=== PATIENT | male | born 1940 | race African-American/Black ===

== ENCOUNTER 2018-07-26 17:33 | Inpatient (IN) | payer MEDICARE, OTHER ==
[~2018-07-26] VITALS: Ht 167.6 cm; Wt 57.6 kg
[2018-07-26 18:07] LABS: CARBON DIOXIDE 29 mmol/L (21-32); CHLORIDE 102 mmol/L (98-107); CREATININE 0.9 mg/dL (0.6-1.3); GLUCOSE 121 mg/dL (74-106); POTASSIUM 4.2 mmol/L (3.5-5.1); UREA NITROGEN, BLOOD 14 mg/dL (7-18)
[2018-07-26 18:13] LABS: ALANINE AMINOTRANSFERASE 19 U/L (16-63); ALKALINE PHOSPHATASE 79 U/L (50-136); ASPARTATE AMINOTRANSFERASE 21 U/L (15-37); BILIRUBIN,DIRECT 0.1 mg/dL (0.0-0.2); BILIRUBIN,TOTAL 0.3 mg/dL (0.2-1.0); TOTAL PROTEIN, SERUM 7.7 g/dL (6.4-8.2)
[2018-07-26] MEDS ORDERED: HYDR-3326 PO (18:18)
[2018-07-26] MEDS ORDERED: DIVA500T2 PO (18:18)
[2018-07-26] MEDS ORDERED: CIME300T PO (18:18)
--- NOTE | 2018-07-26 18:59 | NUR ---
Assumed care of patient. No acute distress noted. [facility]HU admission for DTO.
--- NOTE | 2018-07-26 19:37 | NUR ---
Report given to Alina STEVENSON in MHU. Pt. admitted to MHU , under care of Dr. Loomis/ Areli Reardon SUPERVISOR [employer]. Dx: Psychosis. Belongs List completed
--- NOTE | 2018-07-26 19:41 | NUR ---
MRSA was complete by Dayshift RN
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
[2018-07-26] MEDS ORDERED: MAGNESIUM HYDROXIDE 30 ML LIQUID UDC PO PRN (21:00)
[2018-07-26] MEDS ORDERED: LORAZEPAM 0.5 MG TABLET PO PRN (21:00)
[2018-07-26] MEDS ORDERED: ACETAMINOPHEN 325 MG TABLET PO PRN (21:00)
[2018-07-26] MEDS ORDERED: ZOLPIDEM 5 MG TABLET PO PRN (21:00)
[2018-07-26] MEDS ORDERED: MAG HYDROX/AL HYDROX/SIMETH 30 ML LIQUID UDC PO PRN (21:00)
[2018-07-26] MEDS: HYDROCODONE/APAP 5-325MG TABLET PO PRN (22:32)
[2018-07-27 07:30] VITALS: BP 108/66
[2018-07-27] MEDS: FAMOTIDINE 20 MG TABLET PO SCH ×2 (08:29→20:44)
[2018-07-27] MEDS: HYDROCODONE/APAP 5-325MG TABLET PO PRN (08:58)
[2018-07-27] MEDS ORDERED: LORAZEPAM 0.5 MG TABLET PO PRN (10:15)
[2018-07-27] MEDS ORDERED: LORAZEPAM 1 MG TABLET PO PRN (10:30)
[2018-07-27] MEDS: DIVALPROEX ER 500 MG TAB.SR.24H PO SCH ×2 (10:52→20:44)
--- NOTE | 2018-07-27 11:20 | NUR ---
Firearms Report: mill worker completed and submitted a [employer] firearms report for a 5150 DTO certification.
--- NOTE | 2018-07-27 11:52 | NUR ---
UR NOTE: construction worker called and spoke with Karina, rn case manager, at [facility] [phone: [phone]. [phone]; ]. Per Karina, no rn case manager has been assigned yet and she requested initial admitting clinicals. construction worker faxed patient face sheet, 5150 hold, and ER medical clearance. construction worker will follow-up with [facility] to receive assigned rn case managersenior licensing manager. Addendum: 07/27/18 at 1459 by DANIEL DEL ROSARIO construction worker received call back from Jose [ph: ; fax: ], rn case manager, at [facility] stating that he is the assigned rn case manager to patient for this hospital admission.
--- NOTE | 2018-07-27 14:55 | NUR ---
Initial Discharge Note: Patient is a 76 year old male who currently lives alone in his home [[address] [place] [address]]. Patient states he would like to return to home when ready. Patient provided social media director with his sister, Kinsey [ ] contact information. pitch worker left a voicemail for Kinsey and is awaiting a call back. pitch worker will continue to follow-up. pitch worker will continue to collaborate with patient and MD on a safe and proper discharge.
[2018-07-27 16:43] VITALS: BP 127/74
--- NOTE | 2018-07-27 18:23 | NUR ---
received patient awake on bed, verbally responsive, patient verbalizes pain on his face and lower leg, PRN meds given as ordered for pain, seen and examine by ,orders made and carried out, patient aware, started on depakote ER 500mg,patient denies any homicidal ideation, all needs met will continue monitor
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
[2018-07-27 20:24] VITALS: BP 123/69
[2018-07-27] MEDS: QUETIAPINE FUMARATE 25 MG TABLET PO SCH (20:44)
[2018-07-28 07:57] VITALS: BP 135/77
[2018-07-28] MEDS: DIVALPROEX ER 500 MG TAB.SR.24H PO SCH ×2 (08:34→20:25)
[2018-07-28] MEDS: FAMOTIDINE 20 MG TABLET PO SCH ×2 (08:34→20:25)
--- NOTE | 2018-07-28 11:16 | NUR ---
UR NOTE: lead worker of housekeeping and laundry faxed clinical information to Jose [ph: ; fax: ] caser in, at [facility]. lead worker of housekeeping and laundry received successful fax and placed in patient chart. Per Jose, patient is capitated to [facility] and may need to be transferred pending an available bed. Jose states he will look into bed availability and then call this automobile and property underwriter back.
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
--- NOTE | 2018-07-28 14:47 | NUR ---
DC NOTE: Patient will be transferred to [facility] [[address] [place] [address]] via ambulance transportation. Lateral transfer has been requested and arranged by caseworker protective services, Jose, with [facility] [[phone]]. Per Jose, he has arranged transportation for patient through [employer] and states that the company will call nursing station with ETA. Acceptance to facility was received by Ivan [[phone]], caseworker protective services, at [facility]. Patient has been accepted to Room 909B, and will be followed by Dr. Brody Eaton (psychiatrist). Nursing report can be given to charge nurse: . Patient is currently on a 5250 hold for gravely disabled. Patient is alert and oriented x3 and is aware and agreeable to facility transfer. Patient sister, Brandie [ ], has been notified of facility transfer. Addendum: 07/28/18 at 1720 by DANIEL DEL ROSARIO Patient not discharging today as [facility] has insuffiecient staffing. Per caseworker protective services, Ivan, patient will be able to come to facility tomorrow, July 28, 2018.
[2018-07-28 16:11] VITALS: BP 124/73
--- NOTE | 2018-07-28 17:05 | NUR ---
GROUP NOTE: Patients were asked to draw a picture of how they see themselves and reflect on picture. Subjective: "No, I want to be alone." Objective: Patient expressed no interest in attending group and turned back over on his side in bed. Assessment: Patient presented with euthymic mood and flat affect. Patient appears to isolate himself and stay in his room. Plan: Welfare Case Worker will continue to encourage group attendance as scheduled. contact worker will continue to provide support to the patient to encourage interaction with peers.
--- NOTE | 2018-07-28 17:20 | NUR ---
Discharge planning: knockout worker received information from beth Gerard RN, that patient was unable to be transferred to [facility] this evening because there was insufficient staff at facility per bottle caser, Ivan. knockout worker then called patient insurance claims clerk, Jose [[phone]], who confirmed that patient would not be transferred until tomorrow, July 29, 2018. Per Jose, he will arrange transportation and call to confirm a pick-up time in the morning tomorrow. Per Jose, patient will be covered for one more night in [facility]. knockout worker has informed staffing program manager.
--- NOTE | 2018-07-28 18:34 | NUR ---
received patient alert on bed, compliant to medication, good insight of his condition, patient still has Homicidal thoughts , denies pain, no discomfort noted, for dc shree to [facility] , patient and family aware, will transfer at 8am shree
[2018-07-28] MEDS: QUETIAPINE FUMARATE 25 MG TABLET PO SCH (20:25)
[2018-07-28] MEDS: HYDROCODONE/APAP 5-325MG TABLET PO PRN (20:26)
[2018-07-28 21:13] VITALS: BP_SYST 121; BP_SYST 128; BP_DIAS 67; BP_DIAS 73
[2018-07-29 07:30] VITALS: BP 132/85
--- NOTE | 2018-07-29 08:23 | NUR ---
DISCHARGE NOTE: Patient was not discharged yesterday [07/28/2018] as planned due to insufficient staffing at [facility]. Patient will be transferred today to [facility] [[address] [place] [address]] via ambulance transportation. Lateral transfer has been requested and arranged by case managers, Jose, with [facility] [[phone]]. Per Jose, he will arrange transportation for patient through [employer] and states that the company will call nursing station with ETA. Acceptance to facility was received by Ivan [[phone]], case managers, at [facility]. Patient has been accepted to Room 909B, and will be followed by Dr. Brody Eaton (psychiatrist). Nursing report can be given to charge nurse: . Patient is currently on a 5250 hold for gravely disabled. Patient is alert and oriented x3 and is aware and agreeable to facility transfer. Patient sister, Brandie [ ], has been notified of facility transfer. Addendum: 07/29/18 at 1032 by DANIEL DEL ROSARIO station worker received phone call from Jose case managers, at [facility] who states that a bed is available at [facility] today. Per Jose, he will arrange ambulance transportation through [employer] and it will be scheduled for pick-up at 3:00pm. station worker received confirmation from Ivan, case managers, at [facility] that there is an available male bed for patient today.
[2018-07-29] MEDS: FAMOTIDINE 20 MG TABLET PO SCH (08:31)
[2018-07-29] MEDS: DIVALPROEX ER 500 MG TAB.SR.24H PO SCH (08:31)
[2018-07-29] MEDS: HYDROCODONE/APAP 5-325MG TABLET PO PRN (08:35)
--- NOTE | 2018-07-29 09:35 | NUR ---
Gps/Fashion Show Director- Cooperative, pleasant medications compliant. Discharge planning in progress, patient was informed he is going to be discharge to [facility]. Claimed he is not leaving today. Call Worker Person to talk to patient regarding his discharge plan,
--- NOTE | 2018-07-29 10:35 | NUR ---
Social work note: railroad yard worker received voicemail from patient sister, Natalia [[phone]], regarding patient status. railroad yard worker prior to speaking with Natalia received consent from patient to speak with her. Social called and spoke with Natalia and informed her that patient is currently in the MHU. railroad yard worker also informed Natalia that per insurance request, that patient would be transferred today to [facility]. Natalia was in agreement with this plan. Natalia then informed social security benefits interviewer that patient "may be conserved" or at least have his "finances managed" by [facility] [[phone]]. Per Natalia, she would like to be notified when patient transfers to [place]. railroad yard worker will follow-up with Natalia when patient transfers. railroad yard worker then called [facility] and left a voicemail. railroad yard worker awaiting call back and will continue to follow-up if needed.
--- NOTE | 2018-07-29 10:35 | NUR ---
Gps/Photoflash Powder Mixer- Called [facility]. spoked to Ivan ([employer]), informed of the last picker time per ambulance, @ 1145. Per Ivan do not set patient yet, they dont have bed till the afternoon at 1530. Informed needed to call the Insurance Co. who arranged the ambulance last picker time.
--- NOTE | 2018-07-29 14:25 | NUR ---
Gps/Digital Composer- Called [facility]. ,report given to Nurse Eng. Informed parts picker time around 1530 .Patient was well informed of the discharge plan.
--- NOTE | 2018-07-29 15:45 | NUR ---
Gps/Brand Marketing Manager- Discharged to [facility] via ambulance, all belongings was given back to patient, no complaints noted .
== END 2018-07-29 15:45 | DRG 885 ==
LOC: ER 17:33 → EDBD 19:42 → GPS 19:42
PROVIDERS: ADMIT Psychiatry & Neurology Psychiatry; ATTEND Internal Medicine
DX: F31.64 Bipolar disorder, current episode mixed, severe, with psychotic features (principal); S02.92XD Unspecified fracture of facial bones, subsequent encounter for fracture with routine healing; Y08.89XD Assault by other specified means, subsequent encounter; Z87.11 Personal history of peptic ulcer disease; K21.9 Gastro-esophageal reflux disease without esophagitis; F43.10 Post-traumatic stress disorder, unspecified; F14.10 Cocaine abuse, uncomplicated; F10.10 Alcohol abuse, uncomplicated; Y90.9 Presence of alcohol in blood, level not specified; F16.10 Hallucinogen abuse, uncomplicated; F11.10 Opioid abuse, uncomplicated; R73.9 Hyperglycemia, unspecified; R51 Headache; Z86.79 Personal history of other diseases of the circulatory system
CPT/HCPCS: 36415; 93005; A4663